=== PATIENT | male | born 2000 | race American Indian/Alaskan Native ===

== ENCOUNTER 2020-09-04 21:21 | Emergency (ER) | payer OTHER, SELFPAY ==
[2020-09-04] MEDS ORDERED: diphenhydrAMINE 25 MG CAP PO PRN (22:53)
[2020-09-04] MEDS ORDERED: HALOPERIDOL LACTATE 5 MG/1 ML INJ IM PRN (22:53)
[2020-09-04] MEDS ORDERED: LORazepam 2 MG/ML VIAL IM PRN (22:53)
--- NOTE | 2020-09-04 22:54 | Emergency Department Report ---
ED General Adult HPI - General Chief complaint: Psych Stated complaint: I just want to go home PUI?: No Time Seen by Provider: 09/04/20 22:36 Source: patient, EMS (My EMS is clear), RN notes reviewed Mode of arrival: Ambulatory Limitations: No Limitations - History of Present Illness Initial comments: The patient is a 20-year-old male. He is not known to myself previously. The patient states he has no past medical history. The patient presented to the ER as per triage nursing documentation with a complaint of suicidality. He informed both the triage nurse, and his nurse caring for him that he was feeling suicidal. The patient to me denies physical pain. He denies Covid symptoms. He denies intentional overdose. He tells me he only wants to speak to somebody. To me, he denies suicidality overdose. The patient does not describe the qualitative nature of his symptoms except as noted, and he does not describe exacerbating factors, relieving factors, or aggravating factors. He is not accompanied by friends or family at this time for collateral information. EMS documentation is not available for my review at this time. -: This evening Severity scale (0 -10): 0 Improves with: none Worsens with: none Associated Symptoms: denies other symptoms - Related Data Home Medications Medication Instructions Recorded Confirmed Last Taken No Known Home Medications [No 09/05/20 09/05/20 Unknown Reported Home Medications] Allergies Allergy/AdvReac Type Severity Reaction Status Date / Time No Known Allergies Allergy Unverified 09/04/20 22:30 ED Review of Systems ROS: Stated complaint: DEPPRESION,SUICIDAL THOUGHTS/MH Other details as noted in HPI Comment: All other systems reviewed and negative ED Past Medical Hx - Past Medical History Previous Medical History?: No - Surgical History Past Surgical History?: No - Social History Smoking Status: Never Smoker Substance Use Type: None - Medications Home Medications: Home Medications Medication Instructions Recorded Confirmed Last Taken Type No Known Home Medications [No 09/05/20 09/05/20 Unknown History Reported Home Medications] ED Physical Exam - General Limitations: No Limitations General appearance: alert, in no apparent distress - Head Head exam: Present: atraumatic, normocephalic - Eye Eye exam: Present: normal appearance, EOMI. Absent: nystagmus - ENT ENT exam: Present: normal exam, normal orophraynx, mucous membranes moist, normal external ear exam - Neck Neck exam: Present: normal inspection, full ROM. Absent: tenderness, meningismus - Respiratory Respiratory exam: Present: normal lung sounds bilaterally. Absent: respiratory distress, wheezes, rales, rhonchi, stridor, decreased breath sounds - Cardiovascular Cardiovascular Exam: Present: regular rate, normal rhythm, normal heart sounds. Absent: bradycardia, tachycardia, irregular rhythm, systolic murmur, diastolic murmur, rubs, gallop - GI/Abdominal GI/Abdominal exam: Present: soft. Absent: distended, tenderness, guarding, rebound, rigid, pulsatile mass - Rectal Rectal exam: Present: deferred - Extremities Exam Extremities exam: Present: normal inspection, full ROM, other (2+ pulses noted in the bilateral upper and lower extremities. There is no palpable cord. negative Homans sign. Muscular compartments are soft. The pelvis is stable.). Absent: pedal edema, calf tenderness - Back Exam Back exam: Present: normal inspection, full ROM. Absent: tenderness, CVA tenderness (R), CVA tenderness (L), paraspinal tenderness, vertebral tenderness - Neurological Exam Neurological exam: Present: alert, oriented X3, normal gait, other (No facial droop. Tongue midline. Extraocular movements intact bilaterally. Facial sensation intact to light touch in V1, V2, V3 distribution bilaterally. 5 and a 5 strength in 4 extremities. Sensation intact to light touch in 4 extremities.). Absent: motor sensory deficit - Psychiatric Psychiatric exam: Present: anxious. Absent: manic, homicidal ideation - Skin Skin exam: Present: warm, dry, intact, normal color. Absent: rash ED Course Vital Signs 09/04/20 09/05/20 22:04 03:16 Temperature 98.4 F 97.8 F Pulse Rate 63 56 L Respiratory 16 16 Rate Blood Pressure 124/65 106/56 [Right] O2 Sat by Pulse 100 100 Oximetry - Reevaluation(s) Reevaluation #1: 09/04/20 23:58 Differential diagnosis, including but not limited to: Dysthymia, depression, medical clearance for psychiatric evaluation Assessment and plan: 20-year-old gentleman, who was afebrile, with reassuring vital signs, with a triage nurse articulated complaint of suicidality with possible plan for knife. The patient tells me he is not suicidal. I suspect he is being dishonest. He denies medical complaints. His physical examination is unremarkable. Hold orders initiated, appropriate laboratory studies ordered, mental health evaluation is requested, Covid screen is ordered in case patient requires placement into a psychiatric unit. Reassess after laboratory studies have resulted. I have discussed this plan of care with the patient. He has articulated understanding. 09/05/20 00:57 Laboratory studies are reviewed and appreciated. Mild hypokalemia will be addressed. CK of 1400 and not of immediate/emergent consequence. This patient is young, with soft muscular compartments, and normal renal function. This will decrease on its own with rest, and oral hydration. He does not require intravenous rehydration at this time. Urinalysis is pending. However, at this point time, the patient does not appear to have an immediate medical contraindication to psychiatric admission, evaluation, consultation and placement. The patient would be medically cleared to be discharged, if the psychiatry team recommends that no inpatient psychiatric hospitalization is indicated at this time. 09/05/20 02:26 Urinalysis is unremarkable. ED Medical Decision Making - Lab Data Result diagrams: 09/04/20 22:59 09/04/20 22:59 Vital Signs 09/04/20 22:04 Temperature 98.4 F Pulse Rate 63 Respiratory 16 Rate Blood Pressure 124/65 [Right] O2 Sat by Pulse 100 Oximetry Lab Results 09/04/20 09/04/20 09/04/20 Range/Units 22:59 22:59 22:59 WBC 3.9 L (4.5-11.0) K/mm3 RBC 4.54 (3.65-5.03) M/mm3 Hgb 14.1 (11.8-15.2) gm/dl Hct 41.2 (35.5-45.6) % MCV 91 (84-94) fl MCH 31 (28-32) pg MCHC 34 (32-34) % RDW 13.6 (13.2-15.2) % Plt Count 172 (140-440) K/mm3 Estimated GFR > 60 ml/min BUN/Creatinine Ratio 12 % Acetaminophen 5.0 L (10.0-30.0) ug/mL Lab Results 09/04/20 09/04/20 09/04/20 Range/Units 22:59 22:59 22:59 WBC (4.5-11.0) K/mm3 RBC (3.65-5.03) M/mm3 Hgb (11.8-15.2) gm/dl Hct (35.5-45.6) % MCV (84-94) fl MCH (28-32) pg MCHC (32-34) % RDW (13.2-15.2) % Plt Count (140-440) K/mm3 Sodium 137 (137-145) mmol/L Potassium 3.4 L (3.6-5.0) mmol/L Chloride 101.3 (98-107) mmol/L Carbon Dioxide 26 (22-30) mmol/L Anion Gap 13 mmol/L BUN 11 (9-20) mg/dL Creatinine 0.9 (0.8-1.3) mg/dL Estimated GFR > 60 ml/min BUN/Creatinine Ratio 12 % Glucose 96 (75-100) mg/dL Calcium 9.2 (8.4-10.2) mg/dL Magnesium (1.7-2.3) mg/dL Total Creatine Kinase (55-170) units/L Salicylates < 0.3 L (2.8-20.0) mg/dL Acetaminophen 5.0 L (10.0-30.0) ug/mL Plasma/Serum Alcohol (0-0.07) % 09/04/20 09/04/20 09/04/20 Range/Units 22:59 22:59 22:59 WBC 3.9 L (4.5-11.0) K/mm3 RBC 4.54 (3.65-5.03) M/mm3 Hgb 14.1 (11.8-15.2) gm/dl Hct 41.2 (35.5-45.6) % MCV 91 (84-94) fl MCH 31 (28-32) pg MCHC 34 (32-34) % RDW 13.6 (13.2-15.2) % Plt Count 172 (140-440) K/mm3 Sodium (137-145) mmol/L Potassium (3.6-5.0) mmol/L Chloride (98-107) mmol/L Carbon Dioxide (22-30) mmol/L Anion Gap mmol/L BUN (9-20) mg/dL Creatinine (0.8-1.3) mg/dL Estimated GFR ml/min BUN/Creatinine Ratio % Glucose (75-100) mg/dL Calcium (8.4-10.2) mg/dL Magnesium 1.90 (1.7-2.3) mg/dL Total Creatine Kinase 1490 H (55-170) units/L Salicylates (2.8-20.0) mg/dL Acetaminophen (10.0-30.0) ug/mL Plasma/Serum Alcohol < 0.01 (0-0.07) % Lab Results 09/04/20 09/04/20 09/04/20 Range/Units 22:59 22:59 22:59 WBC (4.5-11.0) K/mm3 RBC (3.65-5.03) M/mm3 Hgb (11.8-15.2) gm/dl Hct (35.5-45.6) % MCV (84-94) fl MCH (28-32) pg MCHC (32-34) % RDW (13.2-15.2) % Plt Count (140-440) K/mm3 Sodium 137 (137-145) mmol/L Potassium 3.4 L (3.6-5.0) mmol/L Chloride 101.3 (98-107) mmol/L Carbon Dioxide 26 (22-30) mmol/L Anion Gap 13 mmol/L BUN 11 (9-20) mg/dL Creatinine 0.9 (0.8-1.3) mg/dL Estimated GFR > 60 ml/min BUN/Creatinine Ratio 12 % Glucose 96 (75-100) mg/dL Calcium 9.2 (8.4-10.2) mg/dL Magnesium (1.7-2.3) mg/dL Total Creatine Kinase (55-170) units/L Urine Color (Yellow) Urine Turbidity (Clear) Urine pH (5.0-7.0) Ur Specific [place] (1.003-1.030) Urine Protein (Negative) mg/dL Urine Glucose (UA) (Negative) mg/dL Urine Ketones (Negative) mg/dL Urine Blood (Negative) Urine Nitrite (Negative) Urine Bilirubin (Negative) Urine Urobilinogen (<2.0) mg/dL Ur Leukocyte Esterase (Negative) Urine WBC (Auto) (0.0-6.0) /HPF Urine RBC (Auto) (0.0-6.0) /HPF U Epithel Cells (Auto) (0-13.0) /HPF Urine Mucus /HPF Salicylates < 0.3 L (2.8-20.0) mg/dL Urine Opiates Screen Urine Methadone Screen Acetaminophen 5.0 L (10.0-30.0) ug/mL Ur Barbiturates Screen Ur Phencyclidine Scrn Ur Amphetamines Screen U Benzodiazepines Scrn Urine Cocaine Screen U Marijuana (THC) Screen Drugs of Abuse Note Plasma/Serum Alcohol (0-0.07) % 09/04/20 09/04/20 09/04/20 Range/Units 22:59 22:59 22:59 WBC 3.9 L (4.5-11.0) K/mm3 RBC 4.54 (3.65-5.03) M/mm3 Hgb 14.1 (11.8-15.2) gm/dl Hct 41.2 (35.5-45.6) % MCV 91 (84-94) fl MCH 31 (28-32) pg MCHC 34 (32-34) % RDW 13.6 (13.2-15.2) % Plt Count 172 (140-440) K/mm3 Sodium (137-145) mmol/L Potassium (3.6-5.0) mmol/L Chloride (98-107) mmol/L Carbon Dioxide (22-30) mmol/L Anion Gap mmol/L BUN (9-20) mg/dL Creatinine (0.8-1.3) mg/dL Estimated GFR ml/min BUN/Creatinine Ratio % Glucose (75-100) mg/dL Calcium (8.4-10.2) mg/dL Magnesium 1.90 (1.7-2.3) mg/dL Total Creatine Kinase 1490 H (55-170) units/L Urine Color (Yellow) Urine Turbidity (Clear) Urine pH (5.0-7.0) Ur Specific [place] (1.003-1.030) Urine Protein (Negative) mg/dL Urine Glucose (UA) (Negative) mg/dL Urine Ketones (Negative) mg/dL Urine Blood (Negative) Urine Nitrite (Negative) Urine Bilirubin (Negative) Urine Urobilinogen (<2.0) mg/dL Ur Leukocyte Esterase (Negative) Urine WBC (Auto) (0.0-6.0) /HPF Urine RBC (Auto) (0.0-6.0) /HPF U Epithel Cells (Auto) (0-13.0) /HPF Urine Mucus /HPF Salicylates (2.8-20.0) mg/dL Urine Opiates Screen Urine Methadone Screen Acetaminophen (10.0-30.0) ug/mL Ur Barbiturates Screen Ur Phencyclidine Scrn Ur Amphetamines Screen U Benzodiazepines Scrn Urine Cocaine Screen U Marijuana (THC) Screen Drugs of Abuse Note Plasma/Serum Alcohol < 0.01 (0-0.07) % 09/05/20 09/05/20 Range/Units 01:00 01:00 WBC (4.5-11.0) K/mm3 RBC (3.65-5.03) M/mm3 Hgb (11.8-15.2) gm/dl Hct (35.5-45.6) % MCV (84-94) fl MCH (28-32) pg MCHC (32-34) % RDW (13.2-15.2) % Plt Count (140-440) K/mm3 Sodium (137-145) mmol/L Potassium (3.6-5.0) mmol/L Chloride (98-107) mmol/L Carbon Dioxide (22-30) mmol/L Anion Gap mmol/L BUN (9-20) mg/dL Creatinine (0.8-1.3) mg/dL Estimated GFR ml/min BUN/Creatinine Ratio % Glucose (75-100) mg/dL Calcium (8.4-10.2) mg/dL Magnesium (1.7-2.3) mg/dL Total Creatine Kinase (55-170) units/L Urine Color Yellow (Yellow) Urine Turbidity Clear (Clear) Urine pH 6.0 (5.0-7.0) Ur Specific [place] 1.027 (1.003-1.030) Urine Protein <15 mg/dl (Negative) mg/dL Urine Glucose (UA) Neg (Negative) mg/dL Urine Ketones Neg (Negative) mg/dL Urine Blood Neg (Negative) Urine Nitrite Neg (Negative) Urine Bilirubin Neg (Negative) Urine Urobilinogen 2.0 (<2.0) mg/dL Ur Leukocyte Esterase Neg (Negative) Urine WBC (Auto) 1.0 (0.0-6.0) /HPF Urine RBC (Auto) 2.0 (0.0-6.0) /HPF U Epithel Cells (Auto) 1.0 (0-13.0) /HPF Urine Mucus Few /HPF Salicylates (2.8-20.0) mg/dL Urine Opiates Screen Negative Urine Methadone Screen Negative Acetaminophen (10.0-30.0) ug/mL Ur Barbiturates Screen Negative Ur Phencyclidine Scrn Negative Ur Amphetamines Screen Negative U Benzodiazepines Scrn Negative Urine Cocaine Screen Negative U Marijuana (THC) Screen Negative Drugs of Abuse Note Disclamer Plasma/Serum Alcohol (0-0.07) % Critical care attestation.: If time is entered above; I have spent that time in minutes in the direct care of this critically ill patient, excluding procedure time. ED Disposition Clinical Impression: Encounter for behavioral health screening, Medical clearance for psychiatric admission Disposition: [id number]/TX-[id number] PSY HOSP/PSY UNIT Is pt being admited?: No Does the pt Need Aspirin: No Condition: Good Referrals: PRIMARY CARE, [Primary Care Provider] - 3-5 Days
[2020-09-04 23:48] LABS: BUN/Creatinine Ratio 12; Blood Urea Nitrogen 11 mg/dL (9-20); Calcium 9.2 mg/dL (8.4-10.2); Hemolysis Index 12
[2020-09-04 23:51] LABS: Hematocrit 41.2 % (35.5-45.6); Hemoglobin 14.1 gm/dl (11.8-15.2); Mean Corpuscular HGB Conc 34 % (32-34); Mean Corpuscular Volume 91 fl (84-94); Platelet Count 172 K/mm3 (140-440); Red Blood Count 4.54 M/mm3 (3.65-5.03); Red Cell Distribution Width 13.6 % (13.2-15.2)
[2020-09-05] MEDS ORDERED: POTASSIUM CHLORIDE ER 20 MEQ TAB PO ONE (00:56)
[2020-09-05 01:23] LABS: Bilirubin,Urine NEG (Negative); Blood,Urine NEG (Negative); Color,Urine Yellow (Yellow); Mucus,Urine FEW /HPF; Protein,Urine <15 mg/dL mg/dL (Negative)
[2020-09-05 01:31] LABS: Amphetamine Screen,Urine Negative; Benzodiazepines Screen,Urine Negative; Cannabinoid Screen,Urine Negative; Cocaine Screen,Urine Negative; Methadone Screen,Urine Negative; Opiate Screen,Urine Negative
[2020-09-05 08:21] VITALS: BP 123/67
[2020-09-05] MEDS ORDERED: POTASSIUM CHLORIDE ER 20 MEQ TAB PO SCH (10:00)
--- NOTE | 2020-09-05 10:17 | Event Note ---
Date: 09/05/20 This patient presented overnight with the complaint of suicidal ideations. He has been placed on an ED hold, but not yet a 1013. The patient's labs have been mostly unremarkable except for a slight elevation in the CK level and very mild hypokalemia with a potassium of 3.4. The patient was given potassium chloride. There is no renal insufficiency. The patient does not appear to be in rhabdomyolysis. At the time of my examination the patient is resting comfortably in room #12, Bed B. I spoke to the emergency department psychiatric nurse, Gayle, who says that there have been no events reported to her from overnight, nor any this morning. There are no meds listed for reconciliation at this time. The patient has not yet been seen by the psychiatric team. They will see him today and assist with disposition. Vital signs, listed below, are reassuring including being afebrile. The patient was previously medically cleared by my colleague. We will continue to monitor this patient during his ED course. Vital Signs - 24 hr 09/04/20 09/05/20 09/05/20 22:04 03:16 08:00 Temperature 98.4 F 97.8 F 97.8 F Pulse Rate 63 56 L 62 Respiratory 16 16 18 Rate Blood Pressure 124/65 106/56 123/67 [Right] O2 Sat by Pulse 100 100 98 Oximetry
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
== END 2020-09-05 14:40 ==
LOC: ED 21:21
DX: Z13.30 Encounter for screening examination for mental health and behavioral disorders, unspecified (principal); Z20.822 Contact with and (suspected) exposure to COVID-19; R45.851 Suicidal ideations; Z79.899 Other long term (current) drug therapy
CPT/HCPCS: 36415; 80048; 80307; 81001; 82550; 83735; 85027; 99284; U0003; 80320; G0480